=== PATIENT | female | born 1945 | race Caucasian/White ===

== ENCOUNTER 2016-05-18 09:46 | Outpatient (CLI) | payer MEDICARE ==
[2016-05-18 16:20] LABS: Cardiac Risk 2.2 (Less than 4.5)
[2016-05-18 16:51] LABS: Thyroid Stimulating Hormone 2.5934 uIU/mL (0.35-4.94); Vitamin D, 25 Hydroxy 32.1 ng/mL (> 30.0)
== END 2016-05-18 09:47 | disposition home or self-care (01) ==
LOC: LABLEX 09:46
PROVIDERS: ATTEND Family Medicine
DX: E78.5 Hyperlipidemia, unspecified (principal); E55.9 Vitamin D deficiency, unspecified; E03.9 Hypothyroidism, unspecified
CPT/HCPCS: 80061; 82306; 84443

== ENCOUNTER 2016-11-15 10:33 | Outpatient (CLI) | payer MEDICARE ==
[2016-11-15 16:36] LABS: Free T4 (Free Thyroxine) 0.93 ng/dL (0.70-1.48)
== END 2016-11-15 10:34 | disposition home or self-care (01) ==
LOC: LABLEX 10:33
PROVIDERS: ATTEND Nurse Practitioner
DX: E03.9 Hypothyroidism, unspecified (principal); E55.9 Vitamin D deficiency, unspecified; E78.5 Hyperlipidemia, unspecified; I10 Essential (primary) hypertension
CPT/HCPCS: 84439; 84481

== ENCOUNTER 2016-11-15 10:33 | Outpatient (CLI) | payer MEDICARE ==
[2016-11-15 16:21] LABS: ALT (SGPT) 29 U/L (8-55); AST (SGOT) 26 U/L (5-34); Albumin 4.2 g/dL (3.4-4.8); Alkaline Phosphatase 74 U/L (40-150); Anion Gap 15 mmol/L (10-20); BUN (Urea Nitrogen) 10 mg/dL (9.8-20.1); Bilirubin, Total 0.6 mg/dL (0.2-1.2); Calc. Creatinine Clearance 0 mL/min (70-130); Calcium 9.6 mg/dL (7.8-10.44); Carbon Dioxide 25 mmol/L (23-31); Cardiac Risk 2.4 (Less than 4.5); Chloride 101 mmol/L (98-107); Cholesterol 247 mg/dl (< 200 Desired); Estimated GFR-MDRD 62; Glucose 103 mg/dL (80-115); HDL Cholesterol 101 mg/dL (>60 Neg Risk); LDL Cholesterol, Calculated 129 mg/dL; Potassium 4.4 mmol/L (3.5-5.1); Protein, Total 7.2 g/dL (6.0-8.3); Sodium 137 mmol/L (136-145); Triglycerides 86 mg/dL (Less than 150)
[2016-11-15 16:57] LABS: Eosinophils 4 % (0-10); Lymphocytes 40 % (21-51); MDiff Complete? YES; Mean Corpuscular HGB CONC 33.4 g/dL (32.0-36.0); Mean Corpuscular Hemoglobin 33.7 pg (27.0-31.0); Mean Platelet Volume 6.4 fL (7.4-10.4); Monocytes 6 % (0-10); Neutrophil 48 % (42-75); Platelet Count 239 thou/uL (130-400); RBC Distribution Width 10.9 % (11.5-14.5); Red Blood Cell (RBC) Count 3.86 mill/uL (4.20-5.40); White Blood Cell (WBC) Count 5.4 thou/uL (4.8-10.8)
== END 2016-11-15 10:34 | disposition home or self-care (01) ==
LOC: LABLEX 10:33
PROVIDERS: ATTEND Nurse Practitioner
DX: E03.9 Hypothyroidism, unspecified (principal); E55.9 Vitamin D deficiency, unspecified; E78.5 Hyperlipidemia, unspecified; I10 Essential (primary) hypertension
CPT/HCPCS: 80053; 80061; 84439; 84443; 84481; 85025